=== PATIENT | male | born 1960 | race Caucasian/White ===

== ENCOUNTER 2017-04-13 13:10 | Day surgery (SDC) | payer OTHER ==
[2017-04-11 16:44] VITALS: BMI 24.4
[2017-04-13] MEDS ORDERED: ROPIVACAINE HCL 0.5% 30ML VIAL ONE (14:31)
[2017-04-13] MEDS ORDERED: MIDAZOLAM HCL 2 MG/2 ML SINGLE DOSE VIAL ONE (14:31)
[2017-04-13] MEDS ORDERED: ONDANSETRON 4 MG/2 ML VIAL IVPUSH PRN (15:57)
[2017-04-13] MEDS ORDERED: oxyCODONE HCL 5 MG TABLET PO PRN (15:57)
[2017-04-13] MEDS ORDERED: PROPOFOL 20 ML ONE ×4 (16:11)
[2017-04-13 18:33] VITALS: TEMP 97.6
[2017-04-13 19:11] VITALS: BP 123/72; PULSE 56
--- NOTE | 2017-04-14 14:05 | OP ---
DATE OF OPERATION: 04/13/2017 PREOPERATIVE DIAGNOSIS: Left distal radius fracture. POSTOPERATIVE DIAGNOSIS: Left distal radius fracture. PROCEDURE: Open reduction and internal fixation of left distal radius fracture, intraarticular. ANESTHESIA TYPE: Regional plus sedation. POSTOPERATIVE CONDITION: Stable. COMPLICATIONS: None. IMPLANTS: Acumed distal radius plate with associated locking and nonlocking screws. TOURNIQUET TIME: One hour. INDICATIONS: This is a pleasant gentleman who had been on vacation and suffered an injury to his left upper extremity when he fell. He was treated locally with closed reduction of his wrist, but was advised that he most likely would require surgical management. When he returned, he came to the office. He was complaining of 2 areas of pain; complained of elbow pain as well as wrist pain. It should be noted that upon re-evaluation in the preoperative holding area of his elbow, there is increased ecchymosis and swelling. He was complaining of increased pain anteriorly. His exam today was more consistent with a distal biceps rupture. I discussed with him that these injuries can often be managed nonoperatively, but also discussed operative management. He is electing for nonoperative care at this time. We will discuss further in the office. As far as his wrist goes, we discussed that he had a comminuted, displaced, impacted, intraarticular fracture. We discussed nonoperative management and closed reduction and casting, which would likely result in malunion, versus operative management which would allow for a more anatomic reduction as well as earlier range of motion. We reviewed operative risks in detail including bleeding, infection, neurovascular injury, need for further surgery, removal of hardware, postoperative pain and stiffness, posttraumatic arthritis. We discussed medical risks such as heart attack, stroke, DVT, PE, and . I addressed all the patient's questions. I addressed his 's questions. They voiced understanding and elected to proceed. DESCRIPTION OF PROCEDURE: Patient was brought to the operating room where sedation was administered. He had been previously given left upper extremity regional block in the preoperative holding area. The left upper extremity was prepped and draped in the usual sterile fashion. A preoperative dose of antibiotics given and the usual timeout procedure was performed. At this point, an incision was planned out over the FCR tendon. The limb was now exsanguinated, and the tourniquet was inflated to 250 mmHg. The incision was then carried down through skin to subcutaneous tissue. Blunt spreading was used to expose the FCR tendon sheath. This was then split in line with the FCR. The FCR was now mobilized medially. Dissection was carried out bluntly between the brachioradialis and the FCR. The fascia over the pronator was now incised and split. There was significant hematoma under this layer. This was evacuated. Pronator was now split just ulnar to its insertion on the radius. An elevator was used to free off the anterior surface of the radius. The fascia was now identified. It was seen to be comminuted. It was irrigated, and a Bomont was used to loosen it from any soft callus that had formed. The plate was now chosen for his wrist, which was a standard-size plate. The plate was held in place with a K-wire. Plate placement was verified fluoroscopically. A 3.5-mm screw was now inserted in the oblique hole, and the placement was optimized. A K-wire was now inserted while the wrist was held in manual reduction into the distal fragment. A second K-wire was placed as well. Again, fluoroscopy was used to confirm fracture reduction. This was satisfactory. The fracture reduction looked satisfactory, and therefore, the distal locking screws were now inserted. These were first drilled, measured, then inserted in standard fashion. Following insertion of the distal screws, fluoroscopy was used to confirm distal screw placement as well as fracture reduction, and both were satisfactory. The remaining 2 shaft screws were now drilled, measured, and then inserted. The entire construct was now examined 1 final time, both visually and fluoroscopically. Both fracture reduction and hardware placement were satisfactory. The wound was copiously irrigated at this point. The pronator was repaired using 2-0 Vicryl. Subcutaneous tissue was approximated using 4-0 Vicryl. The skin was closed using 4-0 nylon. It should be noted that prior to the closure, tourniquet was quickly let down to ensure that hemostasis was achieved. This was accomplished using bipolar electrocautery. Following wound closure, the patient was placed in sterile dressings. He was placed into a volar splint. He was transferred to recovery room in stable condition. Veronika [id number]
== END 2017-04-13 19:05 | disposition home or self-care (01) ==
LOC: FASU 13:10
PROVIDERS: ATTEND Orthopaedic Surgery Sports Medicine
PROC: 0PSJ04Z Reposition Left Radius with Internal Fixation Device, Open Approach (ICD-10-PCS; principal; 2017-04-13 16:22)
DX: S52.532A Colles' fracture of left radius, initial encounter for closed fracture (principal); X58.XXXA Exposure to other specified factors, initial encounter; Y93.9 Activity, unspecified; Y92.9 Unspecified place or not applicable
CPT/HCPCS: 73110-TC-LT; 94760

== ENCOUNTER 2018-03-13 08:41 | Day surgery (SDC) | payer OTHER ==
[2018-02-28 12:49] VITALS: BMI 24.4
[2018-03-13 09:25] VITALS: TEMP 97.9
[2018-03-13] MEDS ORDERED: PROPOFOL 20 ML ONE (10:33)
[2018-03-13] MEDS ORDERED: MIDAZOLAM HCL 2 MG/2 ML SINGLE DOSE VIAL ONE (10:33)
[2018-03-13] MEDS ORDERED: LIDOCAINE HCL 2% (20ML MULTI-DOSE VIAL) NR ONE (10:37)
[2018-03-13 12:16] VITALS: BP 130/78; PULSE 60
[2018-03-13] MEDS ORDERED: oxyCODONE HCL 5 MG TABLET PO PRN (15:24)
--- NOTE | 2018-03-17 10:36 | OP ---
DATE OF OPERATION: 03/13/2018 PREOPERATIVE DIAGNOSIS: Left carpal tunnel syndrome. POSTOPERATIVE DIAGNOSIS: Left carpal tunnel syndrome. OPERATIVE PROCEDURE: Left carpal tunnel release. ANESTHESIA: Local with sedation. COMPLICATIONS: None. ESTIMATED BLOOD LOSS: Minimal. INDICATION FOR PROCEDURE: The patient is a 58-year-old male with the above finding indicated for operative treatment. Risks, benefits, alternatives were discussed with the patient at length and proper informed consent was obtained. PROCEDURE: After proper identification of the patient and correct operative site, patient brought to the operating room and placed supine on the operating table with prominences well-padded. Sedation was given by the anesthesiologist. Local anesthesia was given with 2% lidocaine. The left upper extremity was prepped and draped in the usual sterile fashion and well-padded tourniquet was placed over the sterile prep. Esmarch bandage used to exsanguinate the left upper extremity and tourniquet was placed at 250 mmHg. A longitudinal incision was made over the proximal aspect of the palm. This incision was taken sharply through the skin with blunt and sharp dissection through the subcutaneous tissues. Palmar fascia was divided longitudinally. The transcarpal ligament was divided longitudinally, along with the distal 4 cm of the antebrachial fascia under direct visualization with Loupe magnification. This provided complete release of the median nerve of the wrist. The wound was irrigated with saline and repaired with 5-0 nylon suture. Sterile dressings were applied. The patient was reversed from remaining sedation and brought to the recovery room in stable condition. He tolerated the procedure well. Veronika [id number]
== END 2018-03-13 12:16 | disposition home or self-care (01) ==
LOC: FASU 08:41
PROVIDERS: ATTEND Orthopaedic Surgery Hand Surgery
PROC: 01N50ZZ Release Median Nerve, Open Approach (ICD-10-PCS; principal; 2018-03-13 10:30)
DX: G56.02 Carpal tunnel syndrome, left upper limb (principal)